=== PATIENT | male | born 1980 | race Two or more races ===

== ENCOUNTER 2023-01-27 01:46 | Emergency (ER) | payer OTHER ==
[~2023-01-27] VITALS: Ht 162.6 cm; Wt 61.4 kg
[2023-01-27 02:21] VITALS: BP 123/62; PULSE 91; RESP 16; O2SAT 96
[2023-01-27] MEDS ORDERED: DEXTROSE (50%) 50ML SYRG IV ONE ×2 (02:30→02:45)
[2023-01-27] MEDS ORDERED: ACCU-CHEK COMFORT CURVE STRIP VI ONE ×2 (02:30→02:45)
== END 2023-01-27 02:47 | disposition left against medical advice (07) ==
LOC: ER 01:46
DX: R07.81 Pleurodynia (principal); R11.2 Nausea with vomiting, unspecified; R55 Syncope and collapse; Z53.21 Procedure and treatment not carried out due to patient leaving prior to being seen by health care provider